=== PATIENT | male | born 1980 | race Caucasian/White ===

== ENCOUNTER 2018-08-06 18:06 | Emergency (ER) | payer SELFPAY ==
[2018-08-06] MEDS: IBUPROFEN 800 MG TAB PO (19:58)
== END 2018-08-06 20:45 | disposition home or self-care (01) ==
LOC: E/R 18:06
DX: R07.89 Other chest pain (principal); F17.210 Nicotine dependence, cigarettes, uncomplicated
CPT/HCPCS: 71045; 93005; 99284-25